=== PATIENT | female | born 1960 | race American Indian/Alaskan Native ===

== ENCOUNTER 2019-08-22 12:44 | Emergency (ER) | payer SELFPAY ==
--- NOTE | 2019-08-22 13:18 | Event Note ---
ED Screening Note Date of service: 08/22/19 Time: 13:12 ED Screening Note: This is a 59 y.o. F. that presents to the ER with left flank pain s/p syncopal episode. Patient states she fell down flight of stairs at home landing on right side. PMH of depression and hypothyroidism Patient states she ran out of synthroid 1 week ago and her psychiatrist will no longer refill. She don't have a PCP. This initial assessment/diagnostic orders/clinical plan/treatment(s) is/are subject to change based on patients health status, clinical progression and re- assessment by fellow clinical providers in the ED. Further treatment and workup at subsequent clinical providers discretion. Patient/guardian urged not to elope from the ED as their condition may be serious if not clinically assessed and managed. Initial orders include: Labs and XR
[2019-08-22 15:26] VITALS: BP 139/73
== END 2019-08-22 15:45 | disposition home or self-care (01) ==
LOC: ED 12:44
DX: R55 Syncope and collapse (principal); Z53.21 Procedure and treatment not carried out due to patient leaving prior to being seen by health care provider
CPT/HCPCS: 36415; 84436; 84443; 84481

== ENCOUNTER 2020-11-05 20:46 | Emergency (ER) | payer MEDICAID ==
[2020-11-05 21:57] VITALS: BP 139/86
[2020-11-05 22:31] LABS: Blood Urea Nitrogen 19 mg/dL (7-17); Calcium 9.4 mg/dL (8.4-10.2); Hemolysis Index 17
[2020-11-05 22:32] LABS: Basophils # (Auto) 0.1 K/mm3 (0.0-0.1); Basophils % (Auto) 1.1 % (0.0-1.8); Eosinophils # (Auto) 0.3 K/mm3 (0.0-0.4); Eosinophils % (Auto) 4.1 % (0.0-4.3); Hematocrit 38.6 % (30.3-42.9); Hemoglobin 12.8 gm/dl (10.1-14.3); Lymphocytes # (Auto) 3.1 K/mm3 (1.2-5.4); Lymphocytes % (Auto) 43.6 % (13.4-35.0); Mean Corpuscular HGB Conc 33 % (30-34); Mean Corpuscular Volume 86 fl (79-97); Monocytes # (Auto) 0.5 K/mm3 (0.0-0.8); Monocytes % (Auto) 7.5 % (0.0-7.3); Platelet Count 241 K/mm3 (140-440); Red Blood Count 4.52 M/mm3 (3.65-5.03); Red Cell Distribution Width 14.2 % (13.2-15.2)
[2020-11-05 22:33] LABS: BUN/Creatinine Ratio 27
== END 2020-11-06 04:01 ==
LOC: ED 20:46
DX: F32.9 Major depressive disorder, single episode, unspecified (principal); Z53.21 Procedure and treatment not carried out due to patient leaving prior to being seen by health care provider
CPT/HCPCS: 36415; 80048; 80320; 85025; G0480

== ENCOUNTER 2021-02-04 11:36 | Emergency (ER) | payer MEDICAID ==
--- NOTE | 2021-02-04 12:40 | Event Note ---
ED Screening Note ED Screening Note: hx hypothyroidism states she went to her PCP two months ago and was advised her thyroid function was normal states she believes she may have had a syncope episode last night, states she "blacked out for a second" no CP no fever no n/v/d This initial assessment/diagnostic orders/clinical plan/treatment(s) is/are subject to change based on patients health status, clinical progression and re- assessment by fellow clinical providers in the ED. Further treatment and workup at subsequent clinical providers discretion. Patient/guardian urged not to elope from the ED as their condition may be serious if not clinically assessed and managed. Initial orders include: labs, EKG, UA, UDS
[2021-02-04 14:02] LABS: Basophils % (Auto) 0.6 % (0.0-1.8); Eosinophils # (Auto) 0.2 K/mm3 (0.0-0.4); Eosinophils % (Auto) 3.3 % (0.0-4.3); Hematocrit 41.1 % (30.3-42.9); Hemoglobin 13.2 gm/dl (10.1-14.3); Lymphocytes # (Auto) 2.3 K/mm3 (1.2-5.4); Lymphocytes % (Auto) 31.1 % (13.4-35.0); Mean Corpuscular HGB Conc 32 % (30-34); Mean Corpuscular Volume 86 fl (79-97); Monocytes # (Auto) 0.6 K/mm3 (0.0-0.8); Monocytes % (Auto) 7.6 % (0.0-7.3); Platelet Count 268 K/mm3 (140-440); Red Blood Count 4.78 M/mm3 (3.65-5.03); Red Cell Distribution Width 13.9 % (13.2-15.2)
[2021-02-04 14:14] LABS: Bilirubin,Urine NEG (Negative); Blood,Urine NEG (Negative); Color,Urine Yellow (Yellow); Mucus,Urine FEW /HPF; Protein,Urine <15 mg/dL mg/dL (Negative); Urobilinogen,Urine < 2.0 mg/dL (<2.0); WBC,Urine < 1.0 /HPF (0.0-6.0)
[2021-02-04 14:20] LABS: Benzodiazepines Screen,Urine Negative; Methadone Screen,Urine Negative; Opiate Screen,Urine Negative
[2021-02-04 14:25] LABS: Alanine Aminotransferase 22 units/L (7-56); Albumin 4.2 g/dL (3.9-5); BUN/Creatinine Ratio 19; Blood Urea Nitrogen 15 mg/dL (7-17); Calcium 9.1 mg/dL (8.4-10.2); Hemolysis Index 5
[2021-02-04 14:45] LABS: Amphetamine Screen,Urine Positive; Cannabinoid Screen,Urine Positive; Cocaine Screen,Urine Positive
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
[2021-02-04 17:46] VITALS: BP 151/78
--- NOTE | 2021-02-08 10:14 | Electrocardiograph Report ---
[facility] Test Date: 2021-02-04 Test Time: 11:54:27 Pat Name: TODD SANCHEZ Department: Room: Gender: F Regional Administrative Assistant: DEBORA : 1960 Requested By: ED DOC Order Number: [id number] Reading MD: Wood Howe Measurements Intervals [place] Rate: 77 P: 42 AL: 164 QRS: 36 QRSD: 66 T: 53 QT: 371 QTc: 419 Interpretive Statements Sinus rhythm No previous ECG available for comparison Electronically Signed On 02-08-2021 10:13:36 EDT by Wood Howe
== END 2021-02-04 17:46 | disposition left against medical advice (07) ==
LOC: ED 11:36
DX: R55 Syncope and collapse (principal); F15.10 Other stimulant abuse, uncomplicated; F14.10 Cocaine abuse, uncomplicated; F12.10 Cannabis abuse, uncomplicated; F32.9 Major depressive disorder, single episode, unspecified; Z79.899 Other long term (current) drug therapy
CPT/HCPCS: 36415; 80053; 80307; 81001; 82550; 83735; 84443; 85025; 93005; 99283